=== PATIENT | male | born 1960 | race Caucasian/White ===

== ENCOUNTER 2020-05-08 09:05 | Outpatient (CLI) | payer MEDICARE, SELFPAY ==
--- NOTE | 2020-05-08 09:14 | MR_ITS ---
WS: [id number] MRI LUMBAR SPINE NONCONTRAST HISTORY: LUMBAR RADICULOPATHY COMPARISON: 04/04/2018 TECHNIQUE: Sagittal and axial multisequence imaging is submitted. 7 cervical and 12 thoracic vertebral bodies. 5 lumbar type vertebral bodies. The S1 vertebral body ap pears lumbarized. This numbering pattern will be used on today's examination. Mild straightening of the normal lumbar curvature. No acute fracture. Severe disc space narrowing and desiccation at L5-S1. Conus terminates normally at L2. L1-L2: Normal. L2-L3: Mild annular disc bulging and facet arthritis. L3-L4: Diffuse moderate annular disc bulging. Marked facet and ligamentum flavum arthritis. Moderate LEFT foraminal stenosis due to combination of disc disease and facet arthritis. Suspect there is a ti ny disc protrusion in the proximal LEFT foramen. L4-L5: Diffuse annular disc bulging and osteophytic ridging. RIGHT paracentral disc protrusion. There is an additional LEFT paracentral disc protrusion with asymmetric disc bulging and osteophytosis to the LEFT. There is also laminectomy defect on the RIGHT at this level. Mild central with moderate sub articular recess and bilateral foraminal stenosis. L5-S1: Moderate diffuse annular disc bulging with facet and ligamentum flavum arthritis. Osteophytic ridging resulting in moderate to severe bilateral foraminal stenosis, LEFT greater than RIGHT. Mild c entral stenosis. MR/MR lumbar spine wo con* [id number] IMPRESSION: 1. 5 lumbar type vertebral bodies with the S1 being lumbarized. This numbering pattern will be utilized today. If surgery is contemplated in this patient cor relation with imaging will be important. 2. Mild central with moderate subarticular recess and bilateral foraminal sten osis at L4-5 due to combination of disc and facet arthritis as described above. 3. Moderate to severe bilateral foraminal stenosis, LEFT greater than RIGHT at L5-S1. 4. Moderate LEFT foraminal stenosis at L3-4 due to disc disease and facet dise ase.
== END 2020-05-08 09:06 | disposition home or self-care (01) ==
LOC: RADSHAW 09:10
PROVIDERS: PCP Nurse Practitioner Family; Visit Provider Nurse Practitioner Family
DX: M54.16 Radiculopathy, lumbar region (principal); M48.061 Spinal stenosis, lumbar region without neurogenic claudication; M51.36 Other intervertebral disc degeneration, lumbar region; M48.07 Spinal stenosis, lumbosacral region
CPT/HCPCS: 72148

== ENCOUNTER → 2020-05-13 14:08 | Outpatient (BNVA) | payer MEDICARE, SELFPAY | PROVIDERS: PCP Nurse Practitioner Family; Visit Provider Urology | DX: N41.1 Chronic prostatitis (principal) | CPT/HCPCS: 81001 ==

== ENCOUNTER → 2020-12-18 13:01 | Outpatient (BNVA) | payer MEDICARE, SELFPAY | PROVIDERS: PCP Nurse Practitioner Family; Referring Provider Nurse Practitioner Family; Visit Provider Orthopaedic Surgery | DX: M51.17 Intervertebral disc disorders with radiculopathy, lumbosacral region (principal); M54.9 Dorsalgia, unspecified | CPT/HCPCS: 72110 ==

== ENCOUNTER 2021-01-07 08:16 | Outpatient (CLI) | payer MEDICARE, SELFPAY ==
--- NOTE | 2021-01-07 08:45 | MR_ITS ---
WS: [id number] MRI LUMBAR SPINE NONCONTRAST TECHNIQUE: Sagittal T1, T2 and STIR imaging. Axial T1 and T2 imaging. CLINICAL INFORMATION: COMPARISON: MRI lumbar May 08, 2020 FINDINGS: 7 cervical and 12 thoracic vertebral bodies. 5 lumbar type vertebral bodies. The S1 vertebral body ap pears lumbarized. This numbering pattern will be used on today's examination in keeping with the prio r numbering sequence. Recommend plain film correlation prior to surgical intervention. Mild lumbar curve. No acute compression. Disc space narrowing worse L4-L5 and L5-S1. Slight anterolis thesis L4 on L5. Disc bulging at L2-3 has progressed since the prior examination. L1-L2: Normal. L2-L3: Shallow annular bulging with slight effacement of the ventral thecal sac. Slight encroachment on the traversing L3 nerve roots. Mild central canal stenosis. Mild right and no left foraminal narro wing. L3-L4: Mild annular bulging with moderate central canal stenosis. Narrowing of the left subarticular recess. Moderate facet arthropathy. Mild left foraminal narrowing. L4-L5: Shallow central disc protrusion with moderate central canal stenosis. Evidence of prior remote hemilaminectomy. Slight impingement traversing L5 nerve roots bilaterally. Moderate facet arthropath y. Mild to moderate bilateral foraminal narrowing unchanged. L5-S1: Mild disc bulging with slight effacement of ventral thecal sac. Slight contact of the traversi ng S1 nerve roots bilaterally. Moderate to severe right foraminal narrowing unchanged. Mild left fora jayda narrowing. Moderate facet arthropathy. Visualized pelvic bony structures: Normal. Paravertebral soft tissues: Normal. MR/MR lumbar spine wo con* [id number] IMPRESSION: 1. S1 is lumbarized. Recommend plain film correlation prior to surgical interv ention. 2. Disc bulging L2-3 has progressed compared to previous. Mild central canal s tenosis and narrowing of the subarticular recess bilaterally. Mild right L2-3 f oraminal narrowing. 3. Moderate central canal stenosis L3-4 is stable. Narrowing of the left subar ticular recess. 4. Mild central canal stenosis L4-5 with small central disc herniation is unch anged. Evidence of prior remote right hemilaminectomy. Mild to moderate bilater al foraminal narrowing. 5. Mild disc bulging L5-S1 with slight contact of the traversing S1 nerve root s bilaterally unchanged. Moderate to severe right L5-S1 foraminal narrowing.
== END 2021-01-07 08:17 | disposition home or self-care (01) ==
LOC: RADSHAW 08:19
PROVIDERS: PCP Nurse Practitioner Family; Visit Provider Orthopaedic Surgery
DX: M48.061 Spinal stenosis, lumbar region without neurogenic claudication (principal); M51.27 Other intervertebral disc displacement, lumbosacral region
CPT/HCPCS: 72148

== ENCOUNTER → 2021-04-20 08:19 | Outpatient (BNVA) | payer MEDICARE, MEDICAID, SELFPAY | PROVIDERS: PCP Nurse Practitioner Family; Visit Provider Urology | DX: Z12.5 Encounter for screening for malignant neoplasm of prostate (principal); N41.1 Chronic prostatitis; N32.9 Bladder disorder, unspecified | CPT/HCPCS: 81003; 88112; G0103 ==

== ENCOUNTER → 2021-10-19 15:24 | Outpatient (BNVA) | payer MEDICARE, MEDICAID, SELFPAY | PROVIDERS: PCP Nurse Practitioner Family; Visit Provider Urology | DX: N32.9 Bladder disorder, unspecified (principal); N41.1 Chronic prostatitis | CPT/HCPCS: 81003 ==

== ENCOUNTER → 2022-02-25 10:13 | Outpatient (BNVA) | payer MEDICARE, MEDICAID, SELFPAY | PROVIDERS: PCP Family Medicine; Visit Provider Family Medicine | DX: E78.5 Hyperlipidemia, unspecified (principal); E11.9 Type 2 diabetes mellitus without complications; I10 Essential (primary) hypertension | CPT/HCPCS: 80053; 80061; 83036; 84443 ==

== ENCOUNTER → 2022-06-17 09:33 | Outpatient (BNVA) | payer MEDICARE, SELFPAY | PROVIDERS: PCP Family Medicine; Visit Provider Family Medicine | DX: R31.0 Gross hematuria (principal); K80.20 Calculus of gallbladder without cholecystitis without obstruction; M54.9 Dorsalgia, unspecified; N32.9 Bladder disorder, unspecified; R31.9 Hematuria, unspecified | CPT/HCPCS: 51798; 52000; 74018; 81000; 81003; 87086; 88112; 99213; 99214 ==

== ENCOUNTER 2022-06-30 09:54 | Outpatient (CLI) | payer MEDICARE, SELFPAY ==
[2022-06-30 10:36] LABS: Blood Urea Nitrogen 14 mg/dL (8-23); Glomerular Filtration Rate 85.2 mL/min (90-130)
[2022-06-30] MEDS: iohexol 350 mg/mL 100 mL Btl IV (10:44)
--- NOTE | 2022-06-30 11:15 | CT_ITS ---
WS: [id number] CT ABDOMEN PELVIS TECHNIQUE: Noncontrast CT of the abdomen and contrast-enhanced CT of the abdomen and pelvis with tulio nal and sagittal reformatted images. CLINICAL INFORMATION: Gross Hematuria COMPARISON: None. DLP: 4151.[address] scans at [facility] use at least one of these dose optimization techniques: automated e xposure control; mA and/or kV adjustment per patient size (includes targeted exams where dose is matc hed to clinical indication); or iterative reconstruction. FINDINGS: Gallbladder is contracted. Dense cholelithiasis. Mild diffuse fatty infiltration of the liver. Mild f atty atrophy of the pancreas. Adrenal glands are normal. Normal portal vein and splenic vein. Normal spleen. Normal GE junction. Adrenal glands are normal. Normal renal parenchymal enhancement. Normal excretion on the delayed imag es. No hydronephrosis. Normal filling of the bladder. Prostate measures 4.1 x 3.8 cm. Lung bases are well aerated. Normal caliber abdominal aorta. Celiac and SMA are patent. No periaortic lymphadenopathy. Tiny fat-containing umbilical hernia. Sigmoid diverticulosis. No evidence of acute diverticulitis. Disc space narrowing worse at L3-L4 and L4-L5. Fat-containing RIGHT inguinal hernia. CT/CT abdomen pelvis wo/w [id number] IMPRESSION: 1. Normal bilateral renal parenchymal enhancement. No hydronephrosis. 2. Normal excretion on the delayed images. Normal filling of the bladder. 3. Gallbladder is contracted with dense intraluminal cholelithiasis. This can be followed up with ultrasound. 4. Diverticulosis. 5. No other acute findings.
== END 2022-06-30 09:55 | disposition home or self-care (01) ==
LOC: RAD 09:55
PROVIDERS: PCP Family Medicine; Visit Provider Urology
DX: R31.0 Gross hematuria (principal); K57.90 Diverticulosis of intestine, part unspecified, without perforation or abscess without bleeding; N32.9 Bladder disorder, unspecified
CPT/HCPCS: 74178; 81003; 82565; 84520; 99213

== ENCOUNTER → 2022-07-16 09:57 | Outpatient (BNVA) | payer MEDICARE, MEDICAID, SELFPAY | PROVIDERS: PCP Family Medicine; Visit Provider Family Medicine | DX: E11.9 Type 2 diabetes mellitus without complications (principal); Z23 Encounter for immunization; M96.1 Postlaminectomy syndrome, not elsewhere classified; Z98.890 Other specified postprocedural states; I10 Essential (primary) hypertension; M54.16 Radiculopathy, lumbar region; F03.90 Unspecified dementia, unspecified severity, without behavioral disturbance, psychotic disturbance, mood disturbance, and anxiety | CPT/HCPCS: 83036 ==

== ENCOUNTER 2022-09-22 12:15 | Outpatient (CLI) | payer MEDICARE, SELFPAY ==
[2022-09-22 13:06] LABS: Basophils # 0.1 10^3/uL (0.0-0.1); Basophils % 0.6 %; Eosinophils # 0.2 10^3/uL (0.0-0.8); Eosinophils % 2.6 %; Hematocrit 43.8 % (42.0-52.0); Hemoglobin 14.6 g/dL (11.7-16.6); Lymphocytes # 2.9 10^3/uL (0.8-4.8); Lymphocytes % 35.3 %; Mean Corpuscular HGB Conc 33.3 g/dL (30.0-36.0); Mean Corpuscular Hemoglobin 31.4 pg (28.0-34.0); Mean Corpuscular Volume 94.2 fl (80-94); Mean Platelet Volume 11.1 fL (7.4-10.4); Monocytes # 0.8 10^3/uL (0.2-0.9); Monocytes % 10.2 %; Neutrophils # 4.14 10^3/uL (1.8-7.7); Neutrophils % 50.9 %; Nucleated Red Blood Cells % 0 %; Platelet Count 219 10^3/cmm (130-400); Red Blood Count 4.65 10^6/uL (4.1-5.3); Red Cell Distribution Width 12.4 % (12.1-15.1); White Blood Count 8.1 10^3/uL (4.0-10.0)
[2022-09-22 13:28] LABS: Alanine Aminotransferase 39 U/L (0-41); Albumin Level 4.2 g/dL (3.5-5.2); Alkaline Phosphatase 74 U/L (40-130); Anion Gap 14.2 (5-19); Aspartate Amino Transferase 33 U/L (0-40); Blood Urea Nitrogen 15 mg/dL (8-23); Calcium 9.6 mg/dL (8.5-10.5); Carbon Dioxide 27 mmol/L (22-29); Chloride 98 mmol/L (98-107); Globulin 3.1 g/dL (1.3-4.6); Glomerular Filtration Rate 113.9 mL/min (90-130); Glucose 109 mg/dL (65-115); Lipase 78 U/L (13-60); Osmolality Calculated 281 mOsm/kg (285-295); Potassium 4.2 mmol/L (3.5-5.1); Sodium 135 mmol/L (136-145); Total Bilirubin 1.2 mg/dL (0.15-1.2); Total Protein 7.3 g/dL (6.6-8.7)
== END 2022-09-22 12:16 | disposition home or self-care (01) ==
LOC: LAB 12:23
PROVIDERS: PCP Family Medicine; Visit Provider Family Medicine
DX: K81.0 Acute cholecystitis (principal); K21.9 Gastro-esophageal reflux disease without esophagitis
CPT/HCPCS: 80053; 83690; 85025; 86140; 99203

== ENCOUNTER 2022-10-13 08:01 | Day surgery (SDC) | payer MEDICARE, SELFPAY ==
[2022-10-11 12:31] VITALS: BMI 37.9
[2022-10-13 08:45] VITALS: BP 126/75; PULSE 72; RESP 16; TEMP 36.5; O2SAT 94
[2022-10-13] MEDS: sodium chloride 0.9% 1,000 ML 30 ML IV (08:50)
--- NOTE | 2022-10-13 08:50 | ANES.PREANE2 ---
Pre-Anesthetic Assessment Height/Weight: Height 1.75 m Weight 116.573 kg Temp Pulse Resp BP Pulse Ox O2 Del Method 97.7 F 72 16 126/75 94 10/13/22 08:45 10/13/22 08:45 10/13/22 08:45 10/13/22 08:45 10/13/22 08:45 10/13/22 08:45 Operation Date: 10/13/22 09:45 Proposed Procedures p EGD 79944,K21.9(Not Applicable) - Juan Campos DO Familial anesthetic complications: none Was Beta Malia taken within 24 hours: Yes Was Clonidine taken within 24 hours: N/A Last intake: Intake Last Liquid Date 10/12/22 Last Liquid Time 22:00 Last Solid Date 10/12/22 Last Solid Time 21:00 Social No alcohol and No tobacco Airway Mallampati: Class III Dentition: other (no teeth) CV/HEM Coronary Artery Disease and Hypertension Metabolic Hyperlipidemia and Morbid Obesity Anesthetic Plan ASA status: 3 Anesthesia: MAC Risk of > 500 ml blood loss (7ml/kg in children): No Medications/Allergies Home Medications Medication Instructions Recorded Confirmed Last Taken Type atorvastatin 20 mg tablet 20 mg PO DAILY 05/13/20 10/11/22 Unknown History metoprolol succinate 50 mg 50 mg PO DAILY 05/13/20 10/11/22 10/13/22 History tablet,extended release 24 hr multivitamin 1 tab PO DAILY 05/13/20 10/11/22 10/12/22 History cholecalciferol (vitamin D3) 25 25 mcg PO DAILY 02/25/22 10/11/22 Unknown History mcg (1,000 unit) capsule lisinopril 5 mg tablet 5 mg PO DAILY 02/25/22 10/11/22 10/12/22 History naproxen 500 mg tablet See Rx Instructions .Route 06/08/22 10/11/22 10/12/22 Rx .COMPLEX #60 tabs semaglutide 0.25 mg or 0.5 mg (2 1.5 ml SUBCUT .WEEKLY 06/17/22 10/11/22 10/10/22 History mg/1.5 mL) subcutaneous pen injector (Ozempic) gabapentin 800 mg tablet 800 mg PO TID 90 days #270 tabs 09/22/22 10/11/22 10/12/22 Rx pantoprazole 40 mg tablet,delayed 40 mg PO BID 6 weeks #84 tabs 09/22/22 10/11/22 10/12/22 Rx release (Protonix) levocetirizine 5 mg tablet See Rx Instructions .Route 09/27/22 10/11/22 10/12/22 Rx .COMPLEX #30 tabs Allergies Allergy/AdvReac Type Severity Reaction Status Date / Time diphenhydramine AdvReac tachycardia Verified 10/13/22 08:41 [From Benadryl] [facility] Anesthesia Medical History (Updated 09/22/22 @ 13:25 by Juan Campos DO) Back Pain BPH (benign prostatic hyperplasia) Chronic prostatitis Diabetes mellitus GERD (gastroesophageal reflux disease) Hyperlipidemia Hypertension Intervertebral disc disorder with radiculopathy of lumbosacral region Lesion of bladder Lumbar post-laminectomy syndrome Surgical History History of back surgery 04/20/2018 dr. Eder Eli: Right L3-L4 laminotomy/discectomy/foraminotomy Family History Mother , AT AGE 87-LEUKEMIA CAD (coronary artery disease) Leukemia Father , AT AGE 54-RENAL FAILURE WAS SHOT Chronic kidney disease (CKD) Brother CAD (coronary artery disease) Social History Smoking and tobacco status: never smoked Alcohol intake: never Household members: spouse Marital status: Current occupational status: disabled History of recent travel: No Data Anesthesia Cardiac Studies: No Data to Display
[2022-10-13 09:16] LABS: Glucose Point of Care 142 mg/dL (70-110)
--- NOTE | 2022-10-13 10:59 | W.PM.OPSUD ---
Surgery/Procedure H&P Update DATE OF PROCEDURE: October 13, 2022 DATE H&P PERFORMED: 09/22/22 PLANNED PROCEDURE: Operation Date: 10/13/22 09:45 Proposed Procedures p EGD 32665,K21.9(Not Applicable) - Juan Campos DO
[2022-10-13 11:12] VITALS: BP 120/78; PULSE 76; RESP 12; TEMP 36.1; O2SAT 93
[2022-10-13 11:25] VITALS: BP 120/84; PULSE 70; RESP 16; O2SAT 97
--- NOTE | 2022-10-13 14:56 | ANE.PACU2 ---
Inpatient post-anesthesia follow up: Airway intact: Yes Vital signs: Temperature 97.0 F Pulse Rate 70 Respiratory Rate 16 Blood Pressure 120/84 Pulse Oximetry 97 Oxygen Delivery Me thod Room Air Oxygen Flow Rate Fraction of Inspir ed Oxygen Hydration adequate: Yes Nausea and vomiting: No Pain level: 1 Mental status: Baseline
== END 2022-10-13 11:42 | disposition home or self-care (01) ==
PROVIDERS: PCP Family Medicine; Visit Provider Surgery
PROC: 0DJ08ZZ Inspection of Upper Intestinal Tract, Via Natural or Artificial Opening Endoscopic (ICD-10-PCS; CPT 43235; principal; 2022-10-13 09:45)
DX: K21.9 Gastro-esophageal reflux disease without esophagitis (principal); K29.70 Gastritis, unspecified, without bleeding; I25.10 Atherosclerotic heart disease of native coronary artery without angina pectoris; I10 Essential (primary) hypertension; E78.5 Hyperlipidemia, unspecified; E66.01 Morbid (severe) obesity due to excess calories; Z68.38 Body mass index [BMI] 38.0-38.9, adult; N40.0 Benign prostatic hyperplasia without lower urinary tract symptoms; E11.9 Type 2 diabetes mellitus without complications
CPT/HCPCS: 36416; 43239; 82962; 88305; J2704; J7030

== ENCOUNTER → 2022-10-26 15:32 | Outpatient (BNVA) | payer MEDICARE, SELFPAY | PROVIDERS: PCP Family Medicine; Visit Provider Surgery | DX: Z09 Encounter for follow-up examination after completed treatment for conditions other than malignant neoplasm (principal); K80.20 Calculus of gallbladder without cholecystitis without obstruction | CPT/HCPCS: 99212 ==

== ENCOUNTER 2022-11-22 08:35 | Day surgery (SDC) | payer MEDICARE, SELFPAY ==
[2022-11-19 09:50] VITALS: BMI 38.0
[2022-11-22] VITALS (10 sets, daily range): BP systolic 114–143; BP diastolic 68–88; PULSE 68–85; RESP 10–16; TEMP 36.4–36.8; O2SAT 92–98
[2022-11-22] MEDS: sodium chloride 0.9% 1,000 ML 30 ML IV (09:30)
[2022-11-22 09:31] LABS: Glucose Point of Care 144 mg/dL (70-110)
[2022-11-22 09:53] LABS: Anion Gap 15.1 (5-19); Blood Urea Nitrogen 19 mg/dL (8-23); Calcium 9.1 mg/dL (8.5-10.5); Carbon Dioxide 25 mmol/L (22-29); Chloride 104 mmol/L (98-107); Glomerular Filtration Rate 136.1 mL/min (90-130); Glucose 151 mg/dL (65-115); Osmolality Calculated 295 mOsm/kg (285-295); Potassium 4.1 mmol/L (3.5-5.1); Sodium 140 mmol/L (136-145)
--- NOTE | 2022-11-22 10:03 | P.ANESASSM_ITS ---
Pre-Anesthetic Assessment Height/Weight: Height 1.73 m Weight 113.398 kg Temp Pulse Resp BP Pulse Ox O2 Del Method 97.6 F 71 16 118/76 96 11/22/22 09:10 11/22/22 09:10 11/22/22 09:10 11/22/22 09:10 11/22/22 09:10 11/22/22 09:12 Preop Diagnosis: Symptomatic cholelithiasis Operation Date: 11/22/22 10:10 Proposed Procedures p Laparoscopic Cholecystectomy 47428,K80.20(Not Applicable) - Juan Campos DO Familial anesthetic complications: none Was Beta Malia taken within 24 hours: Yes Was Clonidine taken within 24 hours: N/A Last intake: Intake Last Liquid Date 11/21/22 Last Liquid Time 22:00 Last Solid Date 11/21/22 Last Solid Time 22:00 Social No alcohol and No tobacco Exam alert, oriented x 3, clear to auscultation bilaterally and regular rate & rhythm Airway Mallampati: Class III Dentition: other (no teeth) CV/HEM Coronary Artery Disease and Hypertension Chronic Renal Insufficiency Metabolic Diabetes Mellitus, Hyperlipidemia and Morbid Obesity Anesthetic Plan ASA status: 3 Anesthesia: General Risk of > 500 ml blood loss (7ml/kg in children): No Medications/Allergies Home Medications Medication Instructions Recorded Confirmed Last Taken Type atorvastatin 20 mg tablet 20 mg PO DAILY 05/13/20 11/22/22 11/21/22 History metoprolol succinate 50 mg 50 mg PO DAILY 05/13/20 11/22/22 11/21/22 History tablet,extended release 24 hr multivitamin 1 tab PO DAILY 05/13/20 11/22/22 11/21/22 History cholecalciferol (vitamin D3) 25 25 mcg PO DAILY 02/25/22 11/22/22 11/21/22 History mcg (1,000 unit) capsule lisinopril 5 mg tablet 5 mg PO DAILY 02/25/22 11/22/22 11/21/22 History semaglutide 0.25 mg or 0.5 mg (2 1.5 ml SUBCUT .WEEKLY 06/17/22 11/22/22 11/21/22 History mg/1.5 mL) subcutaneous pen injector (Ozempic) gabapentin 800 mg tablet 800 mg PO TID 90 days #270 tabs 09/22/22 11/22/22 11/21/22 Rx Allergies Allergy/AdvReac Type Severity Reaction Status Date / Time diphenhydramine AdvReac tachycardia Verified 11/19/22 09:48 [From Benadryl] [facility] Anesthesia Medical History Back Pain BPH (benign prostatic hyperplasia) Chronic prostatitis Diabetes mellitus GERD (gastroesophageal reflux disease) Hyperlipidemia Hypertension Intervertebral disc disorder with radiculopathy of lumbosacral region Lesion of bladder Lumbar post-laminectomy syndrome Surgical History History of back surgery 04/20/2018 dr. Eder Eli: Right L3-L4 laminotomy/discectomy/foraminotomy Family History Mother , AT AGE 87-LEUKEMIA CAD (coronary artery disease) Leukemia Father , AT AGE 54-RENAL FAILURE WAS SHOT Chronic kidney disease (CKD) Brother CAD (coronary artery disease) Social History Smoking and tobacco status: never smoked Alcohol intake: never Household members: spouse Marital status: Current occupational status: disabled History of recent travel: No Data Anesthesia 11/22/22 09:30 BMP 11/22/22 09:30 Sodium 140 Potassium 4.1 Chloride 104 Carbon Dioxide 25 BUN 19 Creatinine 0.6 L Glucose 151 H Calcium 9.1 Cardiac Studies: No Data to Display
--- NOTE | 2022-11-22 10:08 | ECG_ITS ---
[facility] Test Date: 2022-11-22 Pat Name: Jaycob Chavarria Department: Room: Gender: Male Compliance Aide: : 1960 Requested By: Adelaida Mayorga Order Number: [id number] Laura MD: Moe Hall M.D. Measurements Intervals [place] Rate: 63 P: 42 ME: 165 QRS: -42 QRSD: 127 T: 51 QT: 382 QTc: 392 Interpretive Statements SINUS RHYTHM LEFT AXIS DEVIATION [QRS AXIS < -30] MODERATE INTRAVENTRICULAR CONDUCTION DELAY [110+ ms QRS DURATION] MODERATE VOLTAGE CRITERIA FOR LVH, CONSIDER NORMAL VARIANT [MEETS CRITERIA IN ONE OF: R(aVL), S(V1), R(V5), R(V5/V6)+S(V1)] No previous ECG available for comparison Electronically Signed On 11-22-2022 20:36:43 FLOAT BUILDER by Moe Hall M.D. [email or web address]
--- NOTE | 2022-11-22 12:47 | W.PM.OPSUD ---
Surgery/Procedure H&P Update DATE OF PROCEDURE: November 22, 2022 DATE H&P PERFORMED: 10/26/22 PREOP DIAGNOSIS: Symptomatic cholelithiasis PLANNED PROCEDURE: Operation Date: 11/22/22 10:10 Proposed Procedures p Laparoscopic Cholecystectomy 58294,K80.20(Not Applicable) - Juan Campos DO
[2022-11-22] MEDS: ceFAZolin 2,000 MG in sodium chloride 0.9% (plus) 50 ML 100 MG IV (13:05)
--- NOTE | 2022-11-22 14:30 | P.OP_ITS ---
Operative Report Date of procedure: November 22, 2022 Pre-op diagnosis: Preop Diagnosis Symptomatic cholelithiasis Post-op diagnosis: same Procedure done: Laparoscopic cholecystectomy Specimens removed/disposition: Gallbladder Surgeon: Dr. Juan Campos DO Anesthesia: General Estimated blood loss (mL): 10 Complications: None apparent Brief History: This is a very pleasant 61-year-old gentleman who is diagnosed with symptomatic cholelithiasis. Laparoscopic cholecystectomy was indicated. The risks and benefits were explained and documented. Procedure: Patient was wheeled into the operative room and placed on the OR table in a supine position. Abdomen was inspected prepped and draped in usual sterile fashion. Time-out was performed and all present were in agreement. A 15 blade scalp was used to make a stab incision in the left upper quadrant and intra- abdominal insufflation was achieved using a Veress needle. After localizing the tissue incisions were made and a 5 millimeter trocar was placed into the umbilicus as well as 2 in the right upper quadrant. A 12 millimeter trocar was placed in the epigastrium. Gallbladder was grasped and elevated. The triangle of Calot was carefully dissected using blunt dissection and electrocautery until the triangle of Calot clearly identified. The cystic duct was clipped proximally and double clipped distally. The duct was then ligated proximally. The clips did not go all the way across the duct and therefore a Endoloop PDS was used to snare the cystic duct. The cystic artery was doubly clipped and ligated. The gallbladder was then removed from the liver bed using electrocautery. The gallbladder was removed from the abdomen using an Endo- Catch bag through the epigastric incision. The liver bed was inspected and no bleeding was seen. The abdomen was irrigated and suctioned. All ports removed. Skin was washed and dried. Incisions were closed with 3-0 and 4-O Vicryl in a subcuticular interrupted fashion. Skin glue was applied. Patient tolerated the procedure well.
--- NOTE | 2022-11-22 14:57 | SUR.PHASEI ---
1451 PT TO PACU 5 PT AWAKES TO VOICE, VERBALIZED NO PAIN OR NAUSEA, ABDOMEN SOFT WITH 4 SITES WITH SKIN GLUE, SCDS ON BILATERALLY, MONITOR SR TO SB WITH NO ECTOPY NOTED. IV TO RT AC WITH NS 150ML NS AT KVO RATE PER GRAVITY.
--- NOTE | 2022-11-22 15:02 | SUR.PHASEI ---
PT DOZING OFF AND ON, AWAKES AND C/O OF ABDOMENAL PAIN BUT UNABLE TO RATE PAIN OR STAY AWAKE. VSS NO OTHER S/S OF DISTRESS, WARM BLANKETS TO PT X 3.
--- NOTE | 2022-11-22 15:25 | SUR.PHASEI ---
1517 PT SLEEPY AWAKES TO VOICE, ORIENTED TO SELF AND PLACE PT C/O OF PAIN WHEN AWAKE BUT QUICKLY BACK TO SLEEP PT OK WITH GOINC TO OPS AND TAKING PO PAIN MED . PT WANTS WATER TO SIP ON AND HOPING TO GO HOME SOON.
[2022-11-22] MEDS: HYDROcodone-acetaminophen 7.5-325 mg Tablet 1 TAB PO (15:59)
--- NOTE | 2022-11-22 16:00 | ANE.PACU2 ---
Inpatient post-anesthesia follow up: Airway intact: Yes Vital signs: Temperature 98.0 F Pulse Rate 85 Respiratory Rate 16 Blood Pressure 114/84 Pulse Oximetry 94 Oxygen Delivery Me thod Room Air Oxygen Flow Rate 8 Fraction of Inspir ed Oxygen Hydration adequate: Yes Nausea and vomiting: No Pain level: 1 Mental status: Baseline
[2022-11-22] MEDS: ondansetron 2 mg/ML SDV 2 mL 4 MG IVP (16:25)
--- NOTE | 2022-11-22 16:34 | SUR.PHASEII ---
16:25 MEDICATED FOR NAUSEA. BLOOD SUGAR CHECKED. 182mg/dL. PO FLUIDS GIVEN.
[2022-11-22 16:42] LABS: Glucose Point of Care 182 mg/dL (70-110)
--- NOTE | 2022-11-22 17:05 | SUR.PHASEII ---
16:50 PT STATES HE FEELS BETTER. RELIEF OF NAUSEA. TOLERATED PO FLUIDS WELL.
== END 2022-11-22 17:00 | disposition home or self-care (01) ==
PROVIDERS: Anesthesiology; PCP Family Medicine; Visit Provider Surgery
PROC: 0FT44ZZ Resection of Gallbladder, Percutaneous Endoscopic Approach (ICD-10-PCS; CPT 47562; principal; 2022-11-22 10:00)
DX: K80.10 Calculus of gallbladder with chronic cholecystitis without obstruction (principal); I25.10 Atherosclerotic heart disease of native coronary artery without angina pectoris; I10 Essential (primary) hypertension; E11.9 Type 2 diabetes mellitus without complications; E78.5 Hyperlipidemia, unspecified; E66.01 Morbid (severe) obesity due to excess calories; Z68.38 Body mass index [BMI] 38.0-38.9, adult; N40.0 Benign prostatic hyperplasia without lower urinary tract symptoms; K21.9 Gastro-esophageal reflux disease without esophagitis
CPT/HCPCS: 47562; 36416; 80048; 82962; 88304; 93005; J0690; J1100; J1170; J2370; J2405; J2710; J3010; J3490; J7030

== ENCOUNTER → 2022-12-28 11:06 | Outpatient (BNVA) | payer MEDICARE, SELFPAY | PROVIDERS: PCP Family Medicine; Visit Provider Surgery | DX: Z98.890 Other specified postprocedural states (principal); Z90.49 Acquired absence of other specified parts of digestive tract | CPT/HCPCS: 99024 ==

== ENCOUNTER → 2023-04-28 09:40 | Outpatient (BNVA) | payer MEDICARE, SELFPAY | PROVIDERS: PCP Family Medicine; Visit Provider Nurse Practitioner | DX: E11.9 Type 2 diabetes mellitus without complications (principal); E78.5 Hyperlipidemia, unspecified; Z12.5 Encounter for screening for malignant neoplasm of prostate | CPT/HCPCS: 80053; 80061; 83036; 84443; 85025; G0103 ==

== ENCOUNTER → 2023-10-18 08:11 | Outpatient (BNVA) | payer MEDICARE, SELFPAY | PROVIDERS: PCP Family Medicine; Visit Provider Nurse Practitioner Family | DX: E78.5 Hyperlipidemia, unspecified (principal); E11.9 Type 2 diabetes mellitus without complications; K91.5 Postcholecystectomy syndrome; I10 Essential (primary) hypertension; E55.9 Vitamin D deficiency, unspecified | CPT/HCPCS: 80053; 80061; 81003; 82306; 83036; 84443; 85025 ==

== ENCOUNTER → 2024-04-19 09:06 | Outpatient (BNVA) | payer MEDICARE, SELFPAY | PROVIDERS: PCP Family Medicine; Visit Provider Nurse Practitioner Family | DX: I10 Essential (primary) hypertension (principal); E78.2 Mixed hyperlipidemia; E11.69 Type 2 diabetes mellitus with other specified complication; K21.9 Gastro-esophageal reflux disease without esophagitis; E55.9 Vitamin D deficiency, unspecified; K91.5 Postcholecystectomy syndrome; R41.3 Other amnesia; D64.9 Anemia, unspecified; Z12.5 Encounter for screening for malignant neoplasm of prostate | CPT/HCPCS: 80053; 80061; 81003; 82306; 82607; 82746; 83036; 84439; 84443; 85025; G0103 ==

== ENCOUNTER → 2025-01-22 08:09 | Outpatient (BNVA) | payer MEDICARE, SELFPAY | PROVIDERS: PCP Nurse Practitioner Family; Visit Provider Nurse Practitioner Family | DX: Z12.5 Encounter for screening for malignant neoplasm of prostate (principal); I10 Essential (primary) hypertension; E78.2 Mixed hyperlipidemia; D64.9 Anemia, unspecified; E55.9 Vitamin D deficiency, unspecified; E11.69 Type 2 diabetes mellitus with other specified complication | CPT/HCPCS: 80053; 80061; 81003; 82306; 83036; 84443; 85025; G0103 ==

== ENCOUNTER → 2025-07-02 09:31 | Outpatient (BNVA) | payer MEDICARE, SELFPAY | PROVIDERS: PCP Nurse Practitioner Family; Visit Provider Nurse Practitioner Family | DX: I10 Essential (primary) hypertension (principal); E78.2 Mixed hyperlipidemia; E11.69 Type 2 diabetes mellitus with other specified complication; N18.9 Chronic kidney disease, unspecified; N32.9 Bladder disorder, unspecified; N41.1 Chronic prostatitis; Z12.5 Encounter for screening for malignant neoplasm of prostate; E55.9 Vitamin D deficiency, unspecified | CPT/HCPCS: 80053; 80061; 81003; 82306; 83036; 84443; 85025; 87086; G0103 ==

== ENCOUNTER 2025-07-16 10:05 | Outpatient (CLI) | payer MEDICARE, SELFPAY | END 2025-07-16 10:06 | disposition home or self-care (01) | LOC: LAB 07-17 06:25 | PROVIDERS: PCP Nurse Practitioner Family; Visit Provider Nurse Practitioner Family | DX: N40.1 Benign prostatic hyperplasia with lower urinary tract symptoms (principal); R35.1 Nocturia; R39.82 Chronic bladder pain | CPT/HCPCS: 81003; 88112 ==

== ENCOUNTER → 2025-07-18 10:04 | Outpatient (BNVA) | payer MEDICARE, SELFPAY | PROVIDERS: PCP Nurse Practitioner Family; Visit Provider Podiatrist Foot & Ankle Surgery | DX: E11.8 Type 2 diabetes mellitus with unspecified complications (principal); E11.40 Type 2 diabetes mellitus with diabetic neuropathy, unspecified | CPT/HCPCS: 99203 ==